=== PATIENT | female | born 1965 | race Hispanic/Latino ===

== ENCOUNTER 2016-05-08 18:41 | Emergency (ER) | payer MEDICARE ==
[2016-05-08 18:58] VITALS: BP 141/80
--- NOTE | 2016-05-08 22:59 | Emergency Department Report ---
- General Chief complaint: Extremity Injury, Lower Stated complaint: LT FOOT PAIN Time Seen by Provider: 05/08/16 22:38 Source: patient, EMS Mode of arrival: Ambulatory Limitations: No Limitations - History of Present Illness Initial comments: 51-year-old female presents to emergency room with complaints of rash shows an left foot area. Patient says he had an abrasion to her left foot few days ago now looking red and swollen. she also notice rash in in between her toes. c/o itching and burning to the left toes. Patient denies any fever lowe leg swelling. MD complaint: rash (left toes/ left foot) Tetanus Up to Date: yes Quality: burning, dull, constant Consistency: constant Improves with: none Worsens with: palpation, movement Context: none Associated symptoms: itching Treatments Prior to Arrival: none - Related Data Previous Rx's Medication Instructions Recorded Last Taken Type Clotrimazole [Athlete's Foot] 60 gm TP BID #1 cream..g. 05/08/16 Unknown Rx Diclofenac Sodium 75 mg PO BID #20 tablet. 05/08/16 Unknown Rx Sulfamethoxazole/Trimethoprim 1 each PO BID #14 tablet 05/08/16 Unknown Rx [Bactrim DS TAB] Allergies Allergy/AdvReac Type Severity Reaction Status Date / Time codeine Allergy Nausea Verified 05/08/16 18:53 Abscess Boil HPI - HPI Chief Complaint: Extremity Injury, Lower Stated Complaint: LT FOOT PAIN Time Seen by Provider: 05/08/16 22:38 Home Medications: Previous Rx's Medication Instructions Recorded Last Taken Type Clotrimazole [Athlete's Foot] 60 gm TP BID #1 cream..g. 05/08/16 Unknown Rx Diclofenac Sodium 75 mg PO BID #20 tablet. 05/08/16 Unknown Rx Sulfamethoxazole/Trimethoprim 1 each PO BID #14 tablet 05/08/16 Unknown Rx [Bactrim DS TAB] Allergies/Adverse Reactions: Allergies Allergy/AdvReac Type Severity Reaction Status Date / Time codeine Allergy Nausea Verified 05/08/16 18:53 ED Review of Systems ROS: Stated complaint: LT FOOT PAIN Other details as noted in HPI Comment: All other systems reviewed and negative Constitutional: denies: chills, fever Eyes: denies: eye pain, eye discharge, vision change ENT: denies: ear pain, throat pain Respiratory: denies: cough, shortness of breath, wheezing Cardiovascular: denies: chest pain, palpitations Endocrine: no symptoms reported Gastrointestinal: denies: abdominal pain, nausea, diarrhea Genitourinary: denies: urgency, dysuria, discharge Musculoskeletal: denies: back pain, joint swelling, arthralgia Skin: as per HPI, rash, lesions Neurological: denies: headache, weakness, paresthesias Psychiatric: denies: anxiety, depression Hematological/Lymphatic: denies: easy bleeding, easy bruising ED Past Medical Hx - Past Medical History Previous Medical History?: Yes Hx Hypertension: Yes Hx Diabetes: Yes - Surgical History Past Surgical History?: No Additional Surgical History: Tubaligation - Social History Smoking Status: Current Every Day Smoker Substance Use Type: Prescribed - Medications Home Medications: Home Medications Medication Instructions Recorded Confirmed Last Taken Type Clotrimazole [Athlete's Foot] 60 gm TP BID #1 cream..g. 05/08/16 Unknown Rx Diclofenac Sodium 75 mg PO BID #20 tablet. 05/08/16 Unknown Rx Sulfamethoxazole/Trimethoprim 1 each PO BID #14 tablet 05/08/16 Unknown Rx [Bactrim DS TAB] ED Physical Exam - General Limitations: No Limitations General appearance: alert, in no apparent distress - Head Head exam: Present: atraumatic, normocephalic - Eye Eye exam: Present: normal appearance - ENT ENT exam: Present: mucous membranes moist - Neck Neck exam: Present: normal inspection - Respiratory Respiratory exam: Present: normal lung sounds bilaterally. Absent: respiratory distress - Cardiovascular Cardiovascular Exam: Present: regular rate, normal rhythm. Absent: systolic murmur, diastolic murmur, rubs, gallop - GI/Abdominal GI/Abdominal exam: Present: soft, normal bowel sounds - Extremities Exam Extremities exam: Present: normal inspection - Expanded Lower Extremity Exam Left Hip exam: Present: normal inspection, full ROM Upper Leg exam: Present: normal inspection, full ROM Knee exam: Present: normal inspection, full ROM Lower Leg exam: Present: normal inspection, full ROM Ankle exam: Present: normal inspection, full ROM Foot/Toe exam: Present: erythema (between all left toes. old abrasion about 1 cm in size at lateral aspect of left foot without any drainage with mild erythema. mild tenderness to touch.) - Back Exam Back exam: Present: normal inspection - Neurological Exam Neurological exam: Present: alert, oriented X3 - Psychiatric Psychiatric exam: Present: normal affect, normal mood - Skin Skin exam: Present: warm, dry, intact, normal color. Absent: rash ED Course Vital Signs 05/08/16 18:54 Temperature 98.4 F Pulse Rate 95 H Respiratory 18 Rate Blood Pressure 141/80 O2 Sat by Pulse 98 Oximetry Critical care attestation.: If time is entered above; I have spent that time in minutes in the direct care of this critically ill patient, excluding procedure time. ED Disposition Clinical Impression: Tinea pedis of left foot Abrasion foot/toe Qualifiers: Encounter type: initial encounter Laterality: left Qualified Code(s): S90.812A - Abrasion, left foot, initial encounter Disposition: DISCHARGED TO HOME OR SELFCARE Is pt being admited?: No Does the pt Need Aspirin: No Condition: Good Instructions: Wound Infection (ED), Tinea Pedis (ED) Prescriptions: Clotrimazole [Athlete's Foot] 60 gm TP BID #1 cream..g. Diclofenac Sodium 75 mg PO BID #20 tablet. Sulfamethoxazole/Trimethoprim [Bactrim DS TAB] 1 each PO BID #14 tablet Referrals: PRIMARY CARE, [Primary Care Provider] - 3-5 Days
[2016-05-08] MEDS ORDERED: BACTRIM DS PO ONE (23:00)
== END 2016-05-08 23:10 | disposition home or self-care (01) ==
LOC: ED 18:41
DX: S90.812A Abrasion, left foot, initial encounter (principal); R21 Rash and other nonspecific skin eruption; I10 Essential (primary) hypertension; E11.9 Type 2 diabetes mellitus without complications; F17.200 Nicotine dependence, unspecified, uncomplicated; X58.XXXA Exposure to other specified factors, initial encounter; Y93.9 Activity, unspecified; Y92.9 Unspecified place or not applicable; Y99.9 Unspecified external cause status
CPT/HCPCS: 99283

== ENCOUNTER 2016-12-07 02:39 | Inpatient (IN) | payer MEDICARE ==
[2016-12-07] MEDS ORDERED: ZOFRAN IV ONE (02:59)
[2016-12-07] MEDS ORDERED: TORADOL IV ONE (02:59)
[2016-12-07] MEDS ORDERED: DILAUDID IV ONE ×2 (02:59→13:26)
[2016-12-07] MEDS ORDERED: ATIVAN IV ONE (04:13)
--- NOTE | 2016-12-07 05:13 | Emergency Department Report ---
ED Extremity Problem HPI - General Chief complaint: Extremity Injury, Lower Stated complaint: LEFT HIP PAIN Time Seen by Provider: 12/07/16 02:54 Source: patient, EMS Mode of arrival: Stretcher Limitations: Physical Limitation - History of Present Illness Initial comments: 51-year-old female with a past medical history asthma, CVA, diabetes, and hypertension and a recent left hip surgery secondary to fracture presents to the hospital complains of left hip pain. Patient was here into October and had left hip replacement surgery due to fracture. Patient was discharged to [facility]. Patient fell 3 days ago and was seen at [facility]. Had negative x-rays and was sent back. Patient states she's had severe pain since the fall and denies any other recent injury. Patient is 10/10 in intensity worse with palpation and movement Severity scale (0 -10): 0 - Related Data Home Medications Medication Instructions Recorded Confirmed Last Taken Budesoni/Formotero 160-4.5(Nf) 2 puff IH BID 11/19/16 11/19/16 11/19/16 [Symbicort 160-4.5 (Nf)] Losartan [Cozaar] 100 mg PO QDAY 11/19/16 11/19/16 11/19/16 Simvastatin [Zocor TAB] 20 mg PO QHS 11/19/16 11/19/16 11/18/16 amLODIPine [Norvasc] 10 mg PO DAILY 11/19/16 11/19/16 11/19/16 glyBURIDE [Glyburide] 10 mg PO DAILY 11/19/16 11/19/16 11/19/16 metFORMIN [Glucophage] 500 mg PO BID 11/19/16 11/19/16 11/19/16 tiZANidine [Zanaflex] 4 mg PO BID 11/19/16 11/19/16 11/19/16 traZODone [Desyrel] 50 mg PO QHS 11/19/16 11/19/16 11/18/16 Previous Rx's Medication Instructions Recorded Last Taken Type LORazepam [Ativan] 0.5 mg PO BID #10 tablet 11/26/16 Unknown Rx Nicotine [Habitrol] 14 mg TD QDAY #30 patch 11/26/16 Unknown Rx oxyCODONE /ACETAMINOPHEN [Percocet 2 tab PO Q6H PRN #10 tablet 11/26/16 Unknown Rx 5/325 mg] Allergies Allergy/AdvReac Type Severity Reaction Status Date / Time codeine Allergy Nausea Verified 05/08/16 18:53 ED Review of Systems ROS: Stated complaint: LEFT HIP PAIN Other details as noted in HPI Comment: All other systems reviewed and negative Other: Constitutional: No fevers chills Eyes: No eye pain visual changes ENT: No ear pain or throat pain Neck: Denies pain Respiratory: Denies cough wheezing shortness of breath Cardiovascular: Denies chest pain, palpitations, syncope GI: Denies abdominal pain, nausea, vomiting, diarrhea : Denies dysuria Musculoskeletal: as per hpi Skin: Denies rash, lesions, erythema Neurologic: Denies headache, numbness, weakness ED Past Medical Hx - Past Medical History Previous Medical History?: Yes Hx Hypertension: Yes Hx CVA: Yes Hx Diabetes: Yes Hx Liver Disease: No Hx Renal Disease: No Hx Sickle Cell Disease: No Hx Asthma: Yes - Surgical History Past Surgical History?: Yes Additional Surgical History: Tubaligation hyst left hip - Social History Smoking Status: Current Every Day Smoker Substance Use Type: Prescribed - Medications Home Medications: Home Medications Medication Instructions Recorded Confirmed Last Taken Type Budesoni/Formotero 160-4.5(Nf) 2 puff IH BID 11/19/16 11/19/16 11/19/16 History [Symbicort 160-4.5 (Nf)] Losartan [Cozaar] 100 mg PO QDAY 11/19/16 11/19/16 11/19/16 History Simvastatin [Zocor TAB] 20 mg PO QHS 11/19/16 11/19/16 11/18/16 History amLODIPine [Norvasc] 10 mg PO DAILY 11/19/16 11/19/16 11/19/16 History glyBURIDE [Glyburide] 10 mg PO DAILY 11/19/16 11/19/16 11/19/16 History metFORMIN [Glucophage] 500 mg PO BID 11/19/16 11/19/16 11/19/16 History tiZANidine [Zanaflex] 4 mg PO BID 11/19/16 11/19/16 11/19/16 History traZODone [Desyrel] 50 mg PO QHS 11/19/16 11/19/16 11/18/16 History LORazepam [Ativan] 0.5 mg PO BID #10 tablet 11/26/16 Unknown Rx Nicotine [Habitrol] 14 mg TD QDAY #30 patch 11/26/16 Unknown Rx oxyCODONE /ACETAMINOPHEN [Percocet 2 tab PO Q6H PRN #10 tablet 11/26/16 Unknown Rx 5/325 mg] ED Physical Exam - General Limitations: Physical Limitation - Other Other exam information: General: Positive distress secondary to pain Head exam: Atraumatic, normocephalic Eyes exam: Normal appearance, pupils equal reactive to light, extraocular movements intact ENT: Moist mucous membrane, normal oropharynx Neck exam: Normal inspection, full range of motion, no meningismus nontender Respiratory exam: Clear to auscultation bilateral, no wheezes, rales, crackles Cardiovascular: Normal rate and rhythm Abdomen: Soft, nondistended, and nontender, with normal bowel sounds, no rebound, or guarding Extremity: The patient is flexed and also leg flexed at the knee with foot drop brace. Left lateral hip surgical wound dressing noted. Tenderness to palpation of left hip and proximal left femur pain, 2+ dp pulse Back: Normal Inspection, full range of motion, no tenderness Neurologic: Alert, oriented x3, cranial nerves intact, no motor or sensory deficit Psychiatric: normal affect, normal mood Skin: Warm, dry, intact ED Course Vital Signs 12/07/16 12/07/16 12/07/16 03:00 04:22 04:30 Temperature 98.4 F Pulse Rate 81 105 H Respiratory 18 11 L Rate Blood Pressure 147/71 152/79 O2 Sat by Pulse 97 91 96 Oximetry - Reevaluation(s) Reevaluation #1: 12/07/16 05:11 Patient given Dilaudid 1 mg for pain and required additional Ativan to calm her down and give her relief - Consultations Consultation #1: 12/07/16 05:[address] Barbour. Nothing by mouth will try to perform closed reduction today ED Medical Decision Making - Radiology Data Radiology results: image reviewed (left hip x-ray: Left prosthetic hip dislocation) - Medical Decision Making Plan admit the patient to the hospital for closed reduction in the OR of the dislocated left hip prosthesis. Orthopedic surgeon informed - Differential Diagnosis fracture, contusion, dislocation, sprain Critical Care Time: No Critical care attestation.: If time is entered above; I have spent that time in minutes in the direct care of this critically ill patient, excluding procedure time. ED Disposition Clinical Impression: Dislocation of internal left hip prosthesis Disposition: -09 OP ADMIT IP TO THIS HOSP Is pt being admited?: Yes Condition: Stable Time of Disposition: 05:18 (Dr Mena informed, labs pending, Km informed)
[2016-12-07 06:05] LABS: Hematocrit 30.9 % (30.3-42.9); Hemoglobin 10.5 gm/dl (10.1-14.3); Mean Corpuscular HGB Conc 34 % (30-34); Mean Corpuscular Hemoglobin 28 pg (28-32); Mean Corpuscular Volume 82 fl (79-97); Platelet Count 360 K/mm3 (140-440); Red Blood Count 3.75 M/mm3 (3.65-5.03); Red Cell Distribution Width 13.3 % (13.2-15.2); White Blood Count 10.6 K/mm3 (4.5-11.0)
[2016-12-07 06:12] LABS: INR 0.96 (0.87-1.13); Partial Thromboplastin Time 28.9 Sec. (24.2-36.6)
[2016-12-07 06:16] LABS: Calcium 8.7 mg/dL (8.4-10.2); Chloride 101.2 mmol/L (98-107); Potassium 4.2 mmol/L (3.6-5.0)
--- NOTE | 2016-12-07 09:28 | XRay Report ---
AP PELVIS: History: Left hip pain Compared to 11/22/16 exam. Superolateral dislocation of the left hip prosthesis is demonstrated. No obvious fracture or diastasis is appreciated. There is anatomic alignment of the right hip. IMPRESSION: Superior lateral dislocation of the left hip prosthesis.
--- NOTE | 2016-12-07 11:07 | History and Physical Report ---
History of Present Illness Chief complaint: I have pain in my left hip History of present illness: 51-year-old female with a past medical history asthma, CVA, diabetes, and hypertension and a recent left hip surgery secondary to fracture presents to the hospital complains of left hip pain. The patient was at a assisted when she fell about 3 days ago, she was seen at [facility], had x-rays that were negative. According to the patient she did not fall again since then, but she noticed that she had excruciating left hip pain she described as 7 out of 10 , worse with movement or palpation. Inability to walk. Therefore she was brought to the hospital, she describes the pain as sharp and nonradiating. Upon arriving in the hospital she was found to have a dislocation of the left hip prosthesis. Past History Past Medical History: diabetes, hypertension, stroke Past Surgical History: total hip replacement (tubal ligation) Social history: no significant social history Family history: no significant family history, hypertension Medications and Allergies Allergies Allergy/AdvReac Type Severity Reaction Status Date / Time codeine Allergy Nausea Verified 05/08/16 18:53 Home Medications Medication Instructions Recorded Confirmed Last Taken Type Budesoni/Formotero 160-4.5(Nf) 2 puff IH BID 11/19/16 11/19/16 11/19/16 History [Symbicort 160-4.5 (Nf)] Losartan [Cozaar] 100 mg PO QDAY 11/19/16 11/19/16 11/19/16 History Simvastatin [Zocor TAB] 20 mg PO QHS 11/19/16 11/19/16 11/18/16 History amLODIPine [Norvasc] 10 mg PO DAILY 11/19/16 11/19/16 11/19/16 History glyBURIDE [Glyburide] 10 mg PO DAILY 11/19/16 11/19/16 11/19/16 History metFORMIN [Glucophage] 500 mg PO BID 11/19/16 11/19/16 11/19/16 History tiZANidine [Zanaflex] 4 mg PO BID 11/19/16 11/19/16 11/19/16 History traZODone [Desyrel] 50 mg PO QHS 11/19/16 11/19/16 11/18/16 History LORazepam [Ativan] 0.5 mg PO BID #10 tablet 11/26/16 Unknown Rx Nicotine [Habitrol] 14 mg TD QDAY #30 patch 11/26/16 Unknown Rx oxyCODONE /ACETAMINOPHEN [Percocet 2 tab PO Q6H PRN #10 tablet 11/26/16 Unknown Rx 5/325 mg] Review of Systems All systems: negative Musculoskeletal: other (left hip pain) Exam - Constitutional Vitals: Temp Pulse Resp BP Pulse Ox 98.4 F 100 H 13 183/96 100 12/07/16 03:00 12/07/16 08:40 12/07/16 08:40 12/07/16 08:40 12/07/16 08:40 General appearance: Present: no acute distress, well-nourished - EENT Eyes: Present: PERRL ENT: hearing intact, clear oral mucosa - Neck Neck: Present: supple, normal ROM - Respiratory Respiratory effort: normal Respiratory: bilateral: CTA - Cardiovascular Heart Sounds: Present: S1 & S2. Absent: rub, click - Extremities Extremities: pulses symmetrical, No edema Extremity abnormal: other (Left hip ROM is reduced) Peripheral Pulses: within normal limits - Abdominal General gastrointestinal: Present: soft, non-tender, non-distended, normal bowel sounds Female genitourinary: Present: normal - Integumentary Integumentary: Present: clear, warm, dry - Musculoskeletal Musculoskeletal: left sided weakness - Psychiatric Psychiatric: appropriate mood/affect, intact judgment & insight - Neurologic Neurologic: CNII-XII intact, focal deficits (left hemiparesis), moves all extremities Results - Labs CBC & Chem 7: 12/08/16 03:38 12/08/16 03:38 Labs: Laboratory Last Values WBC 10.6 K/mm3 (4.5-11.0) 12/07/16 05:39 RBC 3.75 M/mm3 (3.65-5.03) 12/07/16 05:39 Hgb 10.5 gm/dl (10.1-14.3) 12/07/16 05:39 Hct 30.9 % (30.3-42.9) 12/07/16 05:39 MCV 82 fl (79-97) 12/07/16 05:39 MCH 28 pg (28-32) 12/07/16 05:39 MCHC 34 % (30-34) 12/07/16 05:39 RDW 13.3 % (13.2-15.2) 12/07/16 05:39 Plt Count 360 K/mm3 (140-440) 12/07/16 05:39 PT 13.3 Sec. (12.2-14.9) 12/07/16 05:39 INR 0.96 (0.87-1.13) 12/07/16 05:39 APTT 28.9 Sec. (24.2-36.6) 12/07/16 05:39 Sodium 139 mmol/L (137-145) 12/07/16 05:39 Potassium 4.2 mmol/L (3.6-5.0) 12/07/16 05:39 Chloride 101.2 mmol/L (98-107) 12/07/16 05:39 Carbon Dioxide 23 mmol/L (22-30) 12/07/16 05:39 Anion Gap 19 mmol/L 12/07/16 05:39 BUN 14 mg/dL (7-17) 12/07/16 05:39 Creatinine 1.1 mg/dL (0.7-1.2) 12/07/16 05:39 Estimated GFR 52 ml/min 12/07/16 05:39 BUN/Creatinine Ratio 13 % 12/07/16 05:39 Glucose 143 mg/dL (65-100) H 12/07/16 05:39 Calcium 8.7 mg/dL (8.4-10.2) 12/07/16 05:39 Blood Type B POSITIVE 12/07/16 05:43 Antibody Screen TNR 12/07/16 05:43 - Imaging and Cardiology Imaging and Cardiology: Hip x-ray, image reviewed, dislocation of left hip prosthesis Assessment and Plan Assessment and plan: 51-year-old woman with dislocation of left hip procedures Left hip prosthesis dislocation Keep nothing by mouth, orthopedics consult appreciated, plan for close reduction Hypertension Continue home medications Diabetes Continue oral medications and sliding scale insulin History of stroke with residual left-sided weakness Continue secondary prevention medications Nicotine Dependence -nicotine patch, patient does not want to quit, she was counseled DVT prophylaxis Lovenox Plan of care discussed with patient/family: Yes
[2016-12-07] MEDS ORDERED: MILK OF MAGNESIA PO PRN (11:22)
[2016-12-07] MEDS ORDERED: DULCOLAX PR PRN (11:22)
[2016-12-07] MEDS ORDERED: ZOFRAN IV PRN ×2 (11:22→17:47)
[2016-12-07] MEDS ORDERED: TYLENOL PO PRN (11:22)
[2016-12-07] MEDS ORDERED: ATIVAN ONE (11:34)
[2016-12-07] MEDS: ATIVAN PO SCH ×2 (11:54→22:22)
[2016-12-07] MEDS: DILAUDID IV PRN ×5 (11:54→21:02)
[2016-12-07] MEDS ORDERED: NACL 0.45% 1000 ML 1,000 ML IV SCH (12:00)
[2016-12-07] MEDS ORDERED: DILAUDID ONE ×3 (13:10→17:47)
[2016-12-07] MEDS: BROVANA NEBU IH SCH ×2 (13:53→21:05)
[2016-12-07] MEDS: PULMICORT IH SCH ×2 (13:53→21:05)
[2016-12-07] MEDS: HABITROL TD SCH (14:45)
[2016-12-07] MEDS: ZANAFLEX PO SCH ×2 (14:46→22:22)
[2016-12-07] MEDS ORDERED: D50W (25GM) Syringe IV PRN (15:07)
[2016-12-07] MEDS ORDERED: XYLOCAINE MPF 2% ONE (15:37)
[2016-12-07] MEDS ORDERED: DIPRIVAN 10 MG/ML IV ONE (15:40)
--- NOTE | 2016-12-07 16:21 | Anesthesia Consultation ---
Anesthesia Consult and Med Hx - Airway Anesthetic Teeth Evaluation: Edentulous ROM Head & Neck: Adequate Mental/Hyoid Distance: Adequate Mallampati Class: Class III Intubation Access Assessment: Possibly Difficult - Pulmonary Exam CTA: Yes - Cardiac Exam Cardiac Exam: RRR - Pre-Operative Health Status ASA Pre-Surgery Classification: ASA3 Proposed Anesthetic Plan: General (no previous problems) - Pulmonary Hx Smoking: Yes (1ppd>15 yrs) Hx Asthma: Yes - Cardiovascular System Hx Hypertension: Yes (per patient s/p CVA with left sided weakness) - Central Nervous System CVA: Yes (2004) - Gastrointestinal Hx Gastroesophageal Reflux Disease: Yes - Endocrine Hx Renal Disease: No Hx Liver Disease: No Hx Non-Insulin Dependent Diabetes: Yes - Hematic Hx Anemia: No Hx Sickle Cell Disease: No
--- NOTE | 2016-12-07 16:21 | Anesthesia Day of Surgery ---
Anesthesia Day of Surgery - Day of Surgery Patient Examined: Yes Patient H&P Reviewed: Yes Patient is NPO: Yes
[2016-12-07] MEDS ORDERED: NACL 0.9% 1000 ML 1,000 ML ONE (16:26)
[2016-12-07] MEDS ORDERED: PEPCID IV ONE (16:26)
[2016-12-07] MEDS: NOVOLOG SUB-Q SCH ×2 (16:30→22:23)
[2016-12-07] MEDS ORDERED: ZOFRAN ONE (16:54)
[2016-12-07] MEDS ORDERED: DILAUDID IV PRN (17:09)
--- NOTE | 2016-12-07 17:10 | Post Anesthesia Evaluation ---
- Post Anesthesia Evaluation Patient Participated: Yes Airway Patent: Yes Stable Respiratory Function: Yes Nausea/Vomiting: No Temp > 96.8F: Yes Pain Manageable: Yes Adequeate Hydration: Yes Anesthesia Complications: No Block Receding Appropriately: Not Applicable Patient on Ventilator: No
[2016-12-07] MEDS ORDERED: NON-FORMULARY (Budesoni/Formotero 160-4.5(Nf) 2 PUFF) IH SCH (22:00)
[2016-12-07] MEDS: LOVENOX SUB-Q SCH (22:21)
[2016-12-07] MEDS: DESYREL PO SCH (22:22)
[2016-12-07] MEDS: GLUCOPHAGE PO SCH (22:22)
[2016-12-07] MEDS: ZOCOR PO SCH (22:22)
[2016-12-08 04:21] LABS: Hematocrit 31.4 % (30.3-42.9); Hemoglobin 10.6 gm/dl (10.1-14.3); Mean Corpuscular HGB Conc 34 % (30-34); Mean Corpuscular Hemoglobin 28 pg (28-32); Mean Corpuscular Volume 82 fl (79-97); Platelet Count 392 K/mm3 (140-440); Red Blood Count 3.83 M/mm3 (3.65-5.03); Red Cell Distribution Width 13.4 % (13.2-15.2); White Blood Count 10.1 K/mm3 (4.5-11.0)
[2016-12-08 04:37] LABS: Calcium 8.4 mg/dL (8.4-10.2); Potassium 3.9 mmol/L (3.6-5.0)
--- NOTE | 2016-12-08 07:12 | Progress Note ---
Assessment and Plan Assessment and plan: 51-year-old woman with dislocation of left hip procedures Left hip prosthesis dislocation Status post close reduction yesterday. Clinically improved -Sensitive discharged back to [facility] tomorrow Hypertension Continue home medications Diabetes Continue oral medications and sliding scale insulin History of stroke with residual left-sided weakness Continue secondary prevention medications Nicotine Dependence -nicotine patch, patient does not want to quit, she was counseled DVT prophylaxis Lovenox History Interval history: She had her left hip reduced yesterday, since then she states that the pain is very well controlled Hospitalist Physical - Physical exam Narrative exam: General.: Appears well, no distress, nontoxic HEENT: Moist mucous membranes, extraocular muscles intact, no lymphadenopathy Neck: supple Cardiac: S1-S2 heard Lungs: clear to auscultation bilaterally Abdomen: soft , nontender, nondistended, bowel sounds positive Extremities: no edema clubbing or cyanosis Skin: no rash or lesions Neurologic: no gross focal deficits Psych: appropriate behavior, appropriate mood, corporative, judgment intact - Constitutional Vitals: Temp Pulse Resp BP Pulse Ox 99.6 F 83 18 131/64 95 12/08/16 00:56 12/08/16 00:56 12/08/16 00:56 12/08/16 00:56 12/08/16 00:56 General appearance: Present: no acute distress, well-nourished Results - Labs CBC & Chem 7: 12/08/16 03:38 12/08/16 03:38 Labs: Laboratory Last Values WBC 10.1 K/mm3 (4.5-11.0) 12/08/16 03:38 RBC 3.83 M/mm3 (3.65-5.03) 12/08/16 03:38 Hgb 10.6 gm/dl (10.1-14.3) 12/08/16 03:38 Hct 31.4 % (30.3-42.9) 12/08/16 03:38 MCV 82 fl (79-97) 12/08/16 03:38 MCH 28 pg (28-32) 12/08/16 03:38 MCHC 34 % (30-34) 12/08/16 03:38 RDW 13.4 % (13.2-15.2) 12/08/16 03:38 Plt Count 392 K/mm3 (140-440) 12/08/16 03:38 Lymph % (Auto) 22.9 % (13.4-35.0) 12/08/16 03:38 [place] % (Auto) 7.5 % (0.0-7.3) H 12/08/16 03:38 Eos % (Auto) 2.0 % (0.0-4.3) 12/08/16 03:38 Baso % (Auto) 1.0 % (0.0-1.8) 12/08/16 03:38 Lymph # 2.3 K/mm3 (1.2-5.4) 12/08/16 03:38 [place] # 0.8 K/mm3 (0.0-0.8) 12/08/16 03:38 Eos # 0.2 K/mm3 (0.0-0.4) 12/08/16 03:38 Baso # 0.1 K/mm3 (0.0-0.1) 12/08/16 03:38 Seg Neutrophils % 66.6 % (40.0-70.0) 12/08/16 03:38 Seg Neutrophils # 6.7 K/mm3 (1.8-7.7) 12/08/16 03:38 PT 13.3 Sec. (12.2-14.9) 12/07/16 05:39 INR 0.96 (0.87-1.13) 12/07/16 05:39 APTT 28.9 Sec. (24.2-36.6) 12/07/16 05:39 Sodium 135 mmol/L (137-145) L 12/08/16 03:38 Potassium 3.9 mmol/L (3.6-5.0) 12/08/16 03:38 Chloride 97.0 mmol/L (98-107) L 12/08/16 03:38 Carbon Dioxide 23 mmol/L (22-30) 12/08/16 03:38 Anion Gap 19 mmol/L 12/08/16 03:38 BUN 15 mg/dL (7-17) 12/08/16 03:38 Creatinine 1.2 mg/dL (0.7-1.2) 12/08/16 03:38 Estimated GFR 47 ml/min 12/08/16 03:38 BUN/Creatinine Ratio 13 % 12/08/16 03:38 Glucose 103 mg/dL (65-100) H 12/08/16 03:38 POC Glucose 146 (70-105) H 12/08/16 06:16 Calcium 8.4 mg/dL (8.4-10.2) 12/08/16 03:38 Blood Type B POSITIVE 12/07/16 05:43 Antibody Screen TNR 12/07/16 05:43 JALEN Antibody Screen Negative 12/07/16 05:43
--- NOTE | 2016-12-08 07:23 | XRay Report ---
LEFT HIP, ONE VIEW History: Postreduction film, left hip pain. Findings: The superolateral dislocation of the left hip prosthesis has been reduced since earlier today at 0410 hours. Alignment is anatomic. No acute fracture is appreciated. Impression: Anatomic alignment at the left hip.
[2016-12-08] MEDS: NOVOLOG SUB-Q SCH ×4 (07:30→22:04)
[2016-12-08] MEDS: BROVANA NEBU IH SCH ×2 (07:31→21:05)
[2016-12-08] MEDS: PULMICORT IH SCH ×2 (07:31→21:05)
[2016-12-08] MEDS: ATIVAN PO SCH ×2 (09:38→22:04)
[2016-12-08] MEDS: COZAAR PO SCH (09:38)
[2016-12-08] MEDS: GLUCOPHAGE PO SCH ×2 (09:38→22:04)
[2016-12-08] MEDS: NORVASC PO SCH (09:38)
[2016-12-08] MEDS: DIABETA PO SCH (09:39)
[2016-12-08] MEDS: ZANAFLEX PO SCH ×2 (09:39→22:04)
[2016-12-08] MEDS ORDERED: NON-FORMULARY (Losartan [Cozaar] 100 MG) PO SCH (10:00)
[2016-12-08] MEDS: PERCOCET 5/325 PO PRN (10:16)
[2016-12-08] MEDS ORDERED: Fluarix Quad 2017-2018(36 MOS+) IM ONE (12:00)
[2016-12-08] MEDS: HABITROL TD SCH (13:00)
[2016-12-08] MEDS: DILAUDID IV PRN ×2 (14:45→18:39)
--- NOTE | 2016-12-08 16:57 | Procedure Note ---
Date of procedure: 12/07/16 Pre-op diagnosis: dislocated right total hip replacement Post-op diagnosis: same Procedure: Procedure Closed reduction right hip prosthesis Indications 51-year-old female who fell at the correction facility sustaining a dislocation of her right total hip prosthesis Procedure Patient was brought to the recovery room, she was then given MAC anesthesia A timeout procedure was done to identify the patient and the correct hip. Using gentle traction and manipulation the hip was reduced and the leg place in knee immobilizer. A plain xrays obtained in the OR show reduction of previously dislocated right hip prosthesis. She was taken to the recovery room in stable condition Anesthesia: MAC Surgeon: MEDINA MANCINI Estimated blood loss: none Pathology: none Condition: stable Disposition: PACU
--- NOTE | 2016-12-08 18:13 | Progress Note ---
Assessment and Plan s/p closed reduction left hip doing well recommendation - resume physical therapy and rehab may dc to SNF at any time, f/u in office 2 wks Subjective Date of service: 12/08/16 Interval history: doing well, much less pain today Objective Vital signs: Vital Signs - 12hr 12/08/16 12/08/16 12/08/16 07:22 07:31 07:41 Temperature 99.8 F H Pulse Rate 94 H Pulse Rate [ 88 89 Anterior Bilateral Throughout] Respiratory 20 Rate Respiratory 18 18 Rate [Anterior Bilateral Throughout] Blood Pressure 164/82 O2 Sat by Pulse 97 Oximetry 12/08/16 15:27 Temperature 99.4 F Pulse Rate 85 Pulse Rate [ Anterior Bilateral Throughout] Respiratory 20 Rate Respiratory Rate [Anterior Bilateral Throughout] Blood Pressure 114/61 O2 Sat by Pulse 93 Oximetry - Labs CBC & BMP: 12/08/16 03:38 12/08/16 03:38 Labs: Abnormal lab results 12/07/16 12/08/16 12/08/16 Range/Units 21:45 03:38 03:38 [place] % (Auto) 7.5 H (0.0-7.3) % Sodium 135 L (137-145) mmol/L Chloride 97.0 L (98-107) mmol/L Glucose 103 H (65-100) mg/dL POC Glucose 183 H (70-105) 12/08/16 12/08/16 Range/Units 06:16 11:23 [place] % (Auto) (0.0-7.3) % Sodium (137-145) mmol/L Chloride (98-107) mmol/L Glucose (65-100) mg/dL POC Glucose 146 H 204 H (70-105)
[2016-12-08] MEDS: LOVENOX SUB-Q SCH (22:03)
[2016-12-08] MEDS: ZOCOR PO SCH (22:04)
[2016-12-08] MEDS: DESYREL PO SCH (22:04)
[2016-12-09] MEDS: DILAUDID IV PRN (00:19)
[2016-12-09] MEDS: NOVOLOG SUB-Q SCH ×2 (08:33→11:30)
[2016-12-09] MEDS: PULMICORT IH SCH (08:58)
[2016-12-09] MEDS: BROVANA NEBU IH SCH (08:59)
[2016-12-09] MEDS: NORVASC PO SCH (09:03)
[2016-12-09] MEDS: COZAAR PO SCH (09:03)
[2016-12-09] MEDS: GLUCOPHAGE PO SCH (09:03)
[2016-12-09] MEDS: ZANAFLEX PO SCH (09:03)
[2016-12-09] MEDS: DIABETA PO SCH (09:03)
[2016-12-09] MEDS: PERCOCET 5/325 PO PRN (09:04)
[2016-12-09] MEDS: ATIVAN PO SCH (09:05)
--- NOTE | 2016-12-09 11:05 | Discharge Summary ---
Providers - Providers Date of Admission: 12/07/16 11:23 Attending physician: ABBY KRAUSE MD Primary care physician: MEDIC TECHNICIAN Hospitalization Condition: Stable Hospital course: 51-year-old woman with dislocation of left hip procedures Left hip prosthesis dislocation Status post close reduction yesterday. Clinically improved -Sensitive discharged back to [facility] tomorrow Hypertension Continue home medications Diabetes Continue oral medications and sliding scale insulin History of stroke with residual left-sided weakness Continue secondary prevention medications Nicotine Dependence -nicotine patch, patient does not want to quit, she was counseled DVT prophylaxis Lovenox Disposition: DC- TO HOME OR SELFCARE Time spent for discharge: 33 minutes Core Measure Documentation - Palliative Care Palliative Care/ Comfort Measures: Not Applicable - Core Measures Any of the following diagnoses?: none Exam - Constitutional Vitals: Temp Pulse Resp BP Pulse Ox 99.5 F 102 H 18 141/68 99 12/09/16 07:11 12/09/16 09:10 12/09/16 09:10 12/09/16 07:11 12/09/16 07:11 General appearance: Present: no acute distress, well-nourished - EENT Eyes: Present: PERRL ENT: hearing intact, clear oral mucosa - Neck Neck: Present: supple, normal ROM - Respiratory Respiratory effort: normal Respiratory: bilateral: CTA - Cardiovascular Heart Sounds: Present: S1 & S2. Absent: rub, click - Extremities Extremities: pulses symmetrical, No edema Peripheral Pulses: within normal limits - Abdominal General gastrointestinal: Present: soft, non-tender, non-distended, normal bowel sounds Female genitourinary: Present: normal - Integumentary Integumentary: Present: clear, warm, dry - Musculoskeletal Musculoskeletal: gait normal, strength equal bilaterally - Psychiatric Psychiatric: appropriate mood/affect, intact judgment & insight - Neurologic Neurologic: CNII-XII intact, moves all extremities Plan Follow up with: PRIMARY CARE, [Primary Care Provider] - 7 Days Prescriptions: LORazepam [Ativan] 0.5 mg PO BID #10 tablet oxyCODONE /ACETAMINOPHEN [Percocet 5/325 mg] 2 tab PO Q6H PRN #10 tablet PRN Reason: Pain, Moderate (4-6)
[2016-12-09 12:04] VITALS: BP 119/54
== END 2016-12-09 13:36 | disposition home or self-care (01) | DRG 560 ==
LOC: ED 02:39 → 3A 11:23
PROVIDERS: ADMIT Internal Medicine; ATTEND Internal Medicine
PROC: 0SWBXJZ Revision of Synthetic Substitute in Left Hip Joint, External Approach (ICD-10-PCS; principal; 2016-12-07)
PROC: 3E0234Z Introduction of Serum, Toxoid and Vaccine into Muscle, Percutaneous Approach (ICD-10-PCS; 2016-12-08)
DX: T84.021A Dislocation of internal left hip prosthesis, initial encounter (principal); I69.354 Hemiplegia and hemiparesis following cerebral infarction affecting left non-dominant side; I10 Essential (primary) hypertension; E11.8 Type 2 diabetes mellitus with unspecified complications; F17.200 Nicotine dependence, unspecified, uncomplicated; Z96.642 Presence of left artificial hip joint; K21.9 Gastro-esophageal reflux disease without esophagitis; Z23 Encounter for immunization; Z71.6 Tobacco abuse counseling; Z79.899 Other long term (current) drug therapy; Z88.5 Allergy status to narcotic agent; Z98.51 Tubal ligation status
CPT/HCPCS: 36415; 72170; 80048; 82962; 85025; 85027; 85610; 85730; 86850; 86900; 86901; 90686; 94640; J1170; J1650; J1815; J1885; J2060; J2405; J2704; J7030